=== PATIENT | male | born 1960 | race Caucasian/White ===

== ENCOUNTER 2025-01-16 14:30 | Emergency (ER) | payer OTHER, MEDICARE, SELFPAY ==
[2025-01-16] VITALS (7 sets, daily range): BP systolic 97–129; BP diastolic 61–82; PULSE 60–70; RESP 15–18; TEMP 36.8; O2SAT 97–98; BMI 28.4
--- NOTE | 2025-01-16 16:27 | CT_ITS ---
EXAM: CT BRAIN/HEAD WITHOUT CONTRAST; SPINE CERVICAL WITHOUT CONTRAST CLINICAL HISTORY: SYNCOPE COMPARISON: None. TECHNIQUE: Noncontrast CT images of the head and cervical spine with multiplanar reconstructions. Dose reduction techniques were used including intermediate exposure control (AEC),iterative reconstruction technique, and/or mA and/or KV dose adjustments based on patient's size. FINDINGS: HEAD: No acute intracranial hemorrhage, extra-axial collection, mass effect or evidence of acute infarct. Ventricles and subarachnoid spaces are normal in size. Unremarkable orbits. Atherosclerotic calcification along the carotid siphons. Intact skull base and calvarium. Clear sinuses and mastoid air cells. CERVICAL SPINE: No acute fracture or subluxation. Straightening of the cervical lordosis is likely positional and/or degenerative in nature. Multilevel spondylotic changes with varying degrees of disc space narrowing, anterior bridging osteophytosis, uncovertebral spurring and hypertrophic facet arthropathy. No prevertebral soft tissue swelling. Mild atherosclerotic plaque at the carotid artery bifurcations. CT/Brain/Head without Contrast IMPRESSION: 1. No acute intracranial abnormality. 2. No cervical spine fracture or malalignment. Degenerative changes as describe d. Reading Location: [facility]
--- NOTE | 2025-01-16 16:27 | RAD_ITS ---
PROCEDURE: SACRUM-COCCYX MIN 2 VIEWS 01/16/2025 REASON FOR EXAM: TAILBONE PAIN AFTER FALL TECHNIQUE: Procedure Code: RADSAC Modality: DX Procedure: SACRUM-COCCYX MIN 2 VIEWS COMPARISON: None. FINDINGS: No evidence of acute fracture or dislocation. Alignment is anatomic. Visualized joint spaces are preserved. No aggressive osseous lesion. Mild degenerative changes of the lower lumbar spine. RAD/Sacrum-Coccyx min 2 Views IMPRESSION: No evidence of acute fracture or dislocation/subluxation. Reading Location: [facility]
--- NOTE | 2025-01-16 16:27 | RAD_ITS ---
PROCEDURE: CHEST PA AND LATERAL 01/16/2025 REASON FOR EXAM: SYNCOPE TECHNIQUE: Procedure Code: RADCXR Modality: DX Procedure: CHEST PA AND LATERAL COMPARISON: None. FINDINGS: Lungs/Pleura: Clear. No pneumothorax or pleural effusion. Heart/Mediastinum: Within normal limits. Bones/Soft tissues: Mild degenerative changes of the spine. RAD/Chest PA and Lateral IMPRESSION: No acute cardiopulmonary disease. Reading Location: [facility]
--- NOTE | 2025-01-16 16:30 | CT_ITS ---
EXAM: CT BRAIN/HEAD WITHOUT CONTRAST; SPINE CERVICAL WITHOUT CONTRAST CLINICAL HISTORY: SYNCOPE COMPARISON: None. TECHNIQUE: Noncontrast CT images of the head and cervical spine with multiplanar reconstructions. Dose reduction techniques were used including intermediate exposure control (AEC),iterative reconstruction technique, and/or mA and/or KV dose adjustments based on patient's size. FINDINGS: HEAD: No acute intracranial hemorrhage, extra-axial collection, mass effect or evidence of acute infarct. Ventricles and subarachnoid spaces are normal in size. Unremarkable orbits. Atherosclerotic calcification along the carotid siphons. Intact skull base and calvarium. Clear sinuses and mastoid air cells. CERVICAL SPINE: No acute fracture or subluxation. Straightening of the cervical lordosis is likely positional and/or degenerative in nature. Multilevel spondylotic changes with varying degrees of disc space narrowing, anterior bridging osteophytosis, uncovertebral spurring and hypertrophic facet arthropathy. No prevertebral soft tissue swelling. Mild atherosclerotic plaque at the carotid artery bifurcations. CT/Spine Cervical without Contras IMPRESSION: 1. No acute intracranial abnormality. 2. No cervical spine fracture or malalignment. Degenerative changes as describe d. Reading Location: [facility]
--- NOTE | 2025-01-16 16:35 | EX.ED.DYSGE1 ---
HPI History of Present Illness Chief Complaint: Syncope Narrative Narrative: Chief complaint and HPI: 65-year-old male with past medical history of syncope presents for evaluation of syncope. Patient states it is not abnormal for him to pass out. States he has had syncopal episodes before without clear etiology. Patient states that he was at the [employer] today in line to buy a sandwich when he developed presyncopal symptoms such as tunnel vision, warmth, lightheadedness, and nausea. States he knew it was going to pass out. Woke up lying on the pavement with bystanders around him. Only pain from the fall is tailbone pain. He denies any headache, dizziness, shortness of breath, chest pain, abdominal pain, nausea, vomiting, dysuria, weakness, numbness/tingling. States he has had a little to drink today that he does not regularly drink water. Review of systems: See HPI Medications: As listed on the chart Allergies: As listed on the chart PFSH: Per chart Vital signs: As listed on the chart. Reviewed. Physical exam: Gen: A&O x3, NAD Head: Normocephalic, atraumatic Eyes: No sclera icterus, conjunctiva clear, PERRL, EOMI ENT: TMs clear BL, dry mucous membranes, no swelling/lacerations/blood in the mouth or the nares, No nasal septal hematoma, no facial tenderness Neck: Trachea midline, No JVD, Nontender, no carotid bruits CV: RRR, no murmurs, no chest wall TTP Resp: Lungs CTA BL, no w/r/c GI: Abd soft, non-distended, non-tender, no r/r/g Musc: Full ROM, no deformity, no spinal TTP, no joan step-offs, strength +5/5 in all extremities, mild tenderness to palpation of the tailbone without external signs of trauma Skin: Warm, dry, intact, disheveled and dirty Neuro: Alert, oriented, grossly intact, sensation intact, GCS 15 Psych: Cooperative, appropriate mood and affect PFS PFSH Allergy/AdvReac Type Severity Reaction Status Date / Time Penicillins AdvReac Mild RASH Verified 01/16/25 14:32 Social History Smoking Status: Current every day smoker tobacco type: cigarettes EXAM Physical Exam Const Vital Signs: 01/16/25 14:31 01/16/25 16:04 01/16/25 16:23 Temperature 98.3 F Temperature Source Oral Pulse Rate 70 64 Pulse Rate [Lying] Pulse Rate [Sitting (for 1 minute prior to obtaining)] Pulse Rate [Standing (for 1 minute prior to obtaining)] Respiratory Rate 18 17 Respiratory Effort Normal Respiratory Pattern Normal Blood Pressure 103/66 97/61 Blood Pressure [Lying] Blood Pressure [Sitting (for 1 minute prior to obtaining)] Blood Pressure [Standing (for 1 minute prior to obtaining)] Blood Pressure Mean 78 73 Blood Pressure Mean [Lying] Blood Pressure Mean [Sitting (for 1 minute prior to obtaining)] Blood Pressure Mean [Standing (for 1 minute prior to obtaining)] Pulse Ox 98 97 Oxygen Delivery Method Room Air Room Air 01/16/25 16:27 01/16/25 18:00 01/16/25 19:00 Temperature Temperature Source Pulse Rate 64 62 Pulse Rate [Lying] 63 Pulse Rate [Sitting (for 1 minute prior to obtaining)] 60 Pulse Rate [Standing (for 1 minute prior to obtaining)] 63 Respiratory Rate 18 15 Respiratory Effort Respiratory Pattern Blood Pressure 127/82 H 129/82 H Blood Pressure [Lying] 122/69 H Blood Pressure [Sitting (for 1 minute prior to obtaining)] 125/78 H Blood Pressure [Standing (for 1 minute prior to obtaining)] 119/64 Blood Pressure Mean 97 97 Blood Pressure Mean [Lying] 86 Blood Pressure Mean [Sitting (for 1 minute prior to obtaining)] 93 Blood Pressure Mean [Standing (for 1 minute prior to obtaining)] 82 Pulse Ox 98 98 Oxygen Delivery Method Room Air 01/16/25 20:00 Temperature Temperature Source Pulse Rate 64 Pulse Rate [Lying] Pulse Rate [Sitting (for 1 minute prior to obtaining)] Pulse Rate [Standing (for 1 minute prior to obtaining)] Respiratory Rate 18 Respiratory Effort Respiratory Pattern Blood Pressure 115/64 Blood Pressure [Lying] Blood Pressure [Sitting (for 1 minute prior to obtaining)] Blood Pressure [Standing (for 1 minute prior to obtaining)] Blood Pressure Mean 81 Blood Pressure Mean [Lying] Blood Pressure Mean [Sitting (for 1 minute prior to obtaining)] Blood Pressure Mean [Standing (for 1 minute prior to obtaining)] Pulse Ox 97 Oxygen Delivery Method Room Air MDM MDM MDM Narrative Medical decision making narrative: 65-year-old male with past medical history of syncope presents for evaluation of syncope. Patient states it is not abnormal for him to pass out. States he has had syncopal episodes before without clear etiology. Patient states that he was at the [employer] today in line to buy a sandwich when he developed presyncopal symptoms such as tunnel vision, warmth, lightheadedness, and nausea. States he knew it was going to pass out. Woke up lying on the pavement with bystanders around him. Only pain from the fall is tailbone pain otherwise asymptomatic. On presentation, patient no acute distress. Vitals are stable with soft blood pressures. Differential diagnosis includes but is not limited to dehydration, electrolyte abnormality, orthostatic hypotension, suspect less likely intoxication, ACS, PE, intracranial abnormality or fracture from fall. NS bolus and Zofran ordered. Syncope workup ordered. EKG and chest x-ray reviewed. CT of the brain and neck without any acute traumatic injury or abnormality. X-ray of the sacrum and coccyx was personally viewed interpreted by me, ED physician. No fracture or dislocation. Radiology in agreement. CBC without leukocytosis or anemia. D-dimer elevated at 1.3. Cannot rule out PE. CTA chest ordered. CMP relatively unremarkable. Troponin unremarkable x 2. UA negative for UTI. Drug screen positive for marijuana. Alcohol level mildly elevated at 18.9. CTA of the chest negative for PE. At this point in time, no clear etiology for patient's syncope. He remained stable and asymptomatic here in the emergency department. He ambulated without difficulty. Patient stable to discharge home. Follow-up with PCP. Drink plenty fluids over the next 24 hours. He confirmed understand the plan. EKG: Interpreted by me/EM physician: EKG shows normal sinus rhythm with nonspecific changes. Heart rate 62. Diagnostic: Interpreted by me/EM physician: Chest x-ray without pneumonia, effusion, cardiomegaly, pneumothorax. Radiology in agreement. Impression: 1. Syncope 2. Alcohol use Lab Data Labs: Laboratory Results - last 24 hr 01/16/25 01/16/25 01/16/25 16:42 16:59 17:14 WBC 10.8 RBC 4.34 L Hgb 14.0 Hct 40.9 MCV 94.2 H MCH 32.3 H MCHC 34.2 RDW Std Deviation 45.1 H RDW Coeff of Cha 13.1 Plt Count 272 MPV 9.8 Immature Gran % (Auto) 0.400 Neut % (Auto) 75.3 H Lymph % (Auto) 14.9 L Calhoun % (Auto) 7.8 Eos % (Auto) 1.1 Baso % (Auto) 0.5 Absolute Neuts (auto) 8.2 H Absolute Lymphs (auto) 1.61 Nucleated RBC % 0 D-Dimer Quant (PE/DVT) 1.30 H* Sodium 137 Potassium 4.3 Chloride 103 Carbon Dioxide 19.7 L Anion Gap 14 BUN 22 H Creatinine 0.97 Estim Creat Clear Calc 83.33 Est GFR (MDRD) Non-Af 85 BUN/Creatinine Ratio 23.1 H Glucose 89 Calcium 9.1 Total Bilirubin 0.18 AST 29 ALT 24 Alkaline Phosphatase 60 Troponin T High Sens 8 Troponin T Hi Sens 2 Hr Total Protein 7.2 Albumin 4.2 Globulin 3.0 Albumin/Globulin Ratio 1.4 Urine Color Yellow Urine Clarity Clear Urine pH 6.0 Ur Specific Donahue 1.015 Urine Protein Negative Urine Glucose (UA) Normal Urine Ketones Negative Urine Occult Blood Negative Urine Nitrite Negative Urine Bilirubin Negative Urine Urobilinogen Normal Ur Leukocyte Esterase Negative Urine RBC 0 SEEN Urine WBC 0 SEEN Ur Squamous Epith Cells 0 SEEN Urine Bacteria 0 SEEN Urine Mucus 0 SEEN Urine Opiates Screen NEGATIVE U Buprenorphine Qual NEGATIVE Ur Oxycodone Screen NEGATIVE Urine Methadone Screen NEGATIVE Urine Fentanyl Screen NEGATIVE Ur Barbiturates Screen NEGATIVE Ur Phencyclidine Scrn NEGATIVE Ur Amphetamines Screen NEGATIVE U Benzodiazepines Scrn NEGATIVE Urine Cocaine Screen NEGATIVE U Cannabinoids Screen PRESUMPTIVE POSITIVE Ethyl Alcohol 18.9 H POC Glucose 86 01/16/25 01/16/25 18:16 19:19 WBC RBC Hgb Hct MCV MCH MCHC RDW Std Deviation RDW Coeff of Cha Plt Count MPV Immature Gran % (Auto) Neut % (Auto) Lymph % (Auto) Calhoun % (Auto) Eos % (Auto) Baso % (Auto) Absolute Neuts (auto) Absolute Lymphs (auto) Nucleated RBC % D-Dimer Quant (PE/DVT) Sodium Potassium Chloride Carbon Dioxide Anion Gap BUN Creatinine Estim Creat Clear Calc Est GFR (MDRD) Non-Af BUN/Creatinine Ratio Glucose Calcium Total Bilirubin AST ALT Alkaline Phosphatase Troponin T High Sens Cancelled Troponin T Hi Sens 2 Hr 8 Total Protein Albumin Globulin Albumin/Globulin Ratio Urine Color Urine Clarity Urine pH Ur Specific Donahue Urine Protein Urine Glucose (UA) Urine Ketones Urine Occult Blood Urine Nitrite Urine Bilirubin Urine Urobilinogen Ur Leukocyte Esterase Urine RBC Urine WBC Ur Squamous Epith Cells Urine Bacteria Urine Mucus Urine Opiates Screen U Buprenorphine Qual Ur Oxycodone Screen Urine Methadone Screen Urine Fentanyl Screen Ur Barbiturates Screen Ur Phencyclidine Scrn Ur Amphetamines Screen U Benzodiazepines Scrn Urine Cocaine Screen U Cannabinoids Screen Ethyl Alcohol POC Glucose Radiography Diagnostic Testing: Clinical Impression(s) from Imaging Studies Brain CT 01/16/25 16:27 IMPRESSION: 1. No acute intracranial abnormality. 2. No cervical spine fracture or malalignment. Degenerative changes as described. Reading Location: [id number] Chest X-Ray 01/16/25 16:27 IMPRESSION: No acute cardiopulmonary disease. Reading Location: [id number] Sacrum and Coccyx X-Ray 01/16/25 16:27 IMPRESSION: No evidence of acute fracture or dislocation/subluxation. Reading Location: [id number] Cervical Spine CT 01/16/25 16:30 IMPRESSION: 1. No acute intracranial abnormality. 2. No cervical spine fracture or malalignment. Degenerative changes as described. Reading Location: [id number] Chest CTA 01/16/25 17:25 IMPRESSION: Negative for pulmonary embolus. Reading Location: [facility] Discharge Plan Triage Chief Complaint: Syncope ED Provider: Mike Chris Dx/Rx/DC Orders Clinical Impression: Syncope Instructions: ED Near-Fainting, Uncertain Cause Primary Care Provider: [facility] Doctor,Out of Referrals: Cristian Julian MD [Med Staff - Active Staff] - Activity Restrictions/Additional Instructions: Follow-up with primary care physician. If you do not have 1 follow-up with the one provided above. Make sure you are drinking plenty of fluids. Return back to the ED if symptoms change or worsen. Print Language: Uzbek Disposition Disposition: Home, Self Care
[2025-01-16] MEDS: 0.9% Normal Saline (1000mL) 1,000 ML 1000 ML IV (16:39)
[2025-01-16 16:53] LABS: Hematocrit 40.9 % (40-54); Hemoglobin 14.0 g/dL (13.0-16.5); Immature Granulocytes Count 0.040 X10^3/uL (0.0-0.0); Mean Corp Hgb Conc 34.2 g/dL (32-36); Mean Corpuscular Volume 94.2 fL (80-94); Mean Platelet Vol. 9.8 fl (6.2-12.0); NRBC Flagged by Analyzer 0 % (0-5); Platelet Count 272 K/mm3 (150-450); RBC Distribution Width CV 13.1 % (11.6-14.6); RBC Distribution Width SD 45.1 fl (35.1-43.9); Red Blood Count 4.34 M/mm3 (4.6-6.2); White Blood Count 10.8 K/mm3 (4.4-11.0)
[2025-01-16 17:03] LABS: Mucous, Urine 0 SEEN /hpf (<or=2+); Red Blood Cells-Urine 0 SEEN /hpf (0-5); Squamous Epithelial Cells - UA 0 SEEN /hpf (0-5)
[2025-01-16 17:07] LABS: AST(SGOT) 29 U/L (<=37); Alanine Aminotransfer ALT/SGPT 24 U/L (<=46); Albumin, Serum 4.2 g/dL (3.4-4.8); Alkaline Phosphatase 60 U/L (40-129); Anion Gap 14 (5-15); BUN 22 mg/dL (4-19); BUN/Creat Ratio 23.1 RATIO (10-20); Calcium,Total 9.1 mg/dL (7.6-11.0); Carbon Dioxide 19.7 mmol/L (21.0-32.0); Chloride 103 mmol/L (98-108); Estimated Creatinine Clearance 83.33 ml/min (50-250); Globulin 3.0 g/dL (2.2-4.2); Glucose 89 mg/dL (70-99); Potassium 4.3 mmol/L (3.3-5.1)
[2025-01-16 17:11] LABS: Alcohol, Blood (Medical)-Serum 18.9 mg/dL (<=10.0)
[2025-01-16 17:15] LABS: D-Dimer Quantitative (DVT/PE) 1.30 FEU/ug/m (0.27-0.49)
[2025-01-16 17:22] LABS: Color, Urine Yellow (Yellow); Glucose, Dipstick Normal (Normal); Ketone-Dipstick Negative (Negative); Leukocyte Esterase-Dipstick Negative /ul (Negative); Nitrite-Dipstick Negative (Negative); Occult Blood-Urine Negative /ul (Negative); Protein-Dipstick Negative (Negative); Specific Gravity, Urine 1.015 (1.002-1.030); Urine Bilirubin Dipstick Negative (Negative)
--- NOTE | 2025-01-16 17:25 | CT_ITS ---
PROCEDURE: CTA CHEST W/WO CONTRAST 01/16/2025 REASON FOR EXAM: PE, ELEVATED D-DIMER TECHNIQUE: Procedure Code: [id number] Modality: CT Procedure: CTA CHEST W/WO CONTRAST Multiplanar Sagittal and Coronal images were obtained. 3D reconstructions CONTRAST: Isovue 370 VOLUME: 100 mL One or more dose reduction techniques were used (e.g., Automated exposure control, adjustment of the mA and/or kV according to patient size, use of iterative reconstruction technique). RADIATION DOSE SUMMARY: CTDlvol: 21 mGy DLP: 441 mGycm FINDINGS: Normal caliber thoracic aorta. No thoracic aneurysm. No thoracic dissection. Mild coronary artery calcification. Pulmonary arterial contrast bolus is adequate. No visible pulmonary emboli are identified. The upper abdomen is unremarkable. Inspection of the lung parenchyma demonstrates areas of interlobular septal thickening. No discrete mass lesions or areas of consolidation. CT/CTA Chest W/WO Contrast IMPRESSION: Negative for pulmonary embolus. Reading [facility]
[2025-01-16 17:38] LABS: Barbiturate Urine NEGATIVE (< 200 ng/mL); Benzodiazepine Urine NEGATIVE (< 200 ng/mL); PCP Urine NEGATIVE (< 25 ng/mL); THC Urine PRESUMPTIVE POSITIVE (< 50 ng/mL)
[2025-01-16 19:35] LABS: Troponin T High Sensitivity 8 ng/L (<=22)
[2025-01-16 19:42] LABS: Troponin T High Sens 2 HR 8 ng/L (<=22)
== END 2025-01-16 20:31 | disposition home or self-care (01) ==
PROVIDERS: Emergency Provider Surgery; Visit Provider Surgery
DX: R55 Syncope and collapse (principal); F17.210 Nicotine dependence, cigarettes, uncomplicated; F10.90 Alcohol use, unspecified, uncomplicated; Y90.0 Blood alcohol level of less than 20 mg/100 ml
CPT/HCPCS: 70450; 71046; 71275; 72125; 72220; 80053; 80307; 81001; 82077; 82962; 84484; 85025; 85379; 93005; 96361; 96374; 99285; Q9967; A4216; J2405